=== PATIENT | male | born 1995 | race Caucasian/White ===

== ENCOUNTER 2019-05-24 09:47 | Emergency (ER) | payer SELFPAY ==
[2019-05-24 09:51] VITALS: BP 140/73; PULSE 102; TEMP 36.4; O2SAT 98
[2019-05-24 10:19] LABS: Bilirubin Negative (Negative); Blood Negative (Negative); Clarity Clear (Clear); Glucose Negative (Negative); Ketones Negative (Negative); Leukocyte Esterase Negative (Negative); Nitrite Negative (Negative); Urobilinogen 0.2 EU/dL (Up TO 0.2)
--- NOTE | 2019-05-24 10:38 | ED.GENADUL_ITS ---
Discharge Plan Disposition Patient Disposition: HOME Condition: Stable Discharge Details Chief Complaint: Urinary Clinical Impression: Encounter for assessment of STD exposure Primary Care Provider: None,None ED Provider: Dheeraj Avilez Home Meds and New Rx's Prescriptions: No Action amoxicillin 500 MG capsule 500 mg PO TID Qty: 20 RF: 0 Discharge Instructions Instructions: Chlamydia (ED) Additional Instructions: At this time you have been treated for presumptive STD such as gonorrhea and/or chlamydia. This test is a send out and the results will not be available today. As we discussed I recommend avoiding all sexual contact until your test has resulted in hip and treated appropriately. Please make sure that your recent sexual contacts are aware of their potential exposure. Please watch for new or worsening symptoms and return to the ER for any concerns. I do recommend establishing local primary care provider for your outpatient primary care needs Medical Decision Making 23-year-old male, concerned of chlamydia exposure. He denies history of any other STD. He reports only 1 sexual partner, his ex-girlfriend. Was not using condoms. He is currently asymptomatic but noticed a white discharge from his penis this morning. He has been in contact with this previous significant other. Will obtain urinalysis and dirty catch for GC and chlamydia. We discussed safe sex precautions as well as avoiding any sexual intercourse while being treated and his test is pending. Given his concern, we will presumptively treat with 1 g p.o. azithromycin and 250 IM Rocephin. Urinalysis unremarkable, GC and chlamydia pending. Patient has no additional questions or concerns and is comfortable discharge at this time Medical Records Medical records reviewed: Yes I reviewed the patient's medical records. Lab Data Lab results reviewed: Yes I reviewed the patient's lab results. Lab results narrative: Laboratory Tests Range/Units 05/24/19 10:01 Urine Color (Yellow) Yellow Urine Clarity (Clear) Clear Urine pH (5-8) 7.0 Ur Specific [place] (1.005-1.025) 1.020 Urine Protein (Negative) mg/dL Negative Urine Ketones (Negative) mg/dL Negative Urine Blood (Negative) Negative Urine Nitrite (Negative) Negative Urine Bilirubin (Negative) Negative Urine Urobilinogen (Up TO 0.2) EU/dL 0.2 Ur Leukocyte Esterase (Negative) Negative Urine Glucose (Negative) mg/dL Negative HPI General Mode of arrival: ambulatory . Date/Time Provider Initiated Documentation: 05/24/19 09:50 . Limitations to Documentation: no limitations . Information obtained by: patient . HPI Narrative: This is a 23-year-old gentle man with no past medical history who believes that he has contracted chlamydia from his ex-girlfriend. He noticed a small amount of white discharge from his penis this morning. He denies any penile discomfort, pain in his testicles, abdominal pain, nausea, vomiting, fever, diarrhea or constipation. He denies any skin rash. Related Data Home Medications Medication Instructions Recorded Confirmed amoxicillin 500 mg PO TID #20 capsule 05/03/15 Previous Rx's Medication Instructions Recorded amoxicillin 500 mg PO TID #20 capsule 05/03/15 Allergies Allergy/AdvReac Type Severity Reaction Status Date / Time No Known Allergies Allergy Unverified 05/03/15 00:26 General Stated Complaint: Urinary RICKEY: 4 Review of Systems Constitutional Constitutional: Denies fever(s) Gastrointestinal Gastrointestinal: Denies abdominal pain, Denies nausea and Denies vomiting Genitourinary Genitourinary: Denies hematuria, Denies genital lesions, Denies genital pain, Denies dysuria, Reports penile discharge, Denies scrotal swelling, Denies testicular pain and Denies urinary frequency Musculoskeletal Musculoskeletal: Denies back pain and Denies myalgias Integumentary/Breasts Skin/Breast: Denies rash [facility] Social History Smoking/Tobacco Use Status: Current-Occasional Tobacco Type: cigarettes Alcohol Intake: current Alcohol Intake frequency: a few times a month Drug use: Daily Substance use type: marijuana Do you feel safe at home: Yes Do you feel safe in your relationship?: Yes Exam Const General: cooperative, healthy appearing, comfortable and no acute distress Orientation: alert and awake HENMT Head: normal to inspection, normocephalic and atraumatic Mouth: moist mucous membranes Eyes Conjunctivae: conjunctivae normal Neck Neck: normal visual inspection, trachea midline and supple Resp Effort & Inspection: normal respiratory effort and able to speak in complete sentences Cardio Rate: regular rate Rhythm: regular rhythm Male General Exam: Yes normal external exam Penis: normal penis Meatus: meatus normal Scrotum: scrotum normal Testes: normal Back/Spine/Pelvis Back: No back tenderness Skin General skin exam: no rashes or lesions noted Neuro General: patient alert, patient awake, moves all extremities and no focal motor deficits Sensory Exam: no sensory deficits noted Psych Appearance: grossly normal Mental Status: mental status grossly normal Course Vital Signs Vital signs: Vital Signs Temperature 36.4 C L 05/24/19 09:51 Pulse 102 H 05/24/19 09:51 Blood Pressure 140/73 05/24/19 09:51 Pulse Oximetry 98 05/24/19 09:51 Temperature 36.4 C L 05/24/19 09:51 Temperature Source Temporal Artery Scan 05/24/19 09:51 Pulse 102 H 05/24/19 09:51 Respiratory Effort Non-Labored 05/24/19 09:53 Blood Pressure 140/73 05/24/19 09:51 Blood Pressure Position Sitting 05/24/19 09:51 Pulse Oximetry 98 05/24/19 09:51 Oxygen Delivery Method Room Air 05/24/19 09:51 Oxygen Flow Rate 0 05/24/19 09:51 Lab/Test Results Lab/Test Results: Laboratory Tests Range/Units 05/24/19 10:01 Urine Color (Yellow) Yellow Urine Clarity (Clear) Clear Urine pH (5-8) 7.0 Ur Specific [place] (1.005-1.025) 1.020 Urine Protein (Negative) mg/dL Negative Urine Ketones (Negative) mg/dL Negative Urine Blood (Negative) Negative Urine Nitrite (Negative) Negative Urine Bilirubin (Negative) Negative Urine Urobilinogen (Up TO 0.2) EU/dL 0.2 Ur Leukocyte Esterase (Negative) Negative Urine Glucose (Negative) mg/dL Negative
[2019-05-24] MEDS: Lidocaine 1% Multi-Dose 50 ML VIAL (10:50)
[2019-05-24] MEDS: Azithromycin 250 MG TAB 1000 MG PO (10:50)
[2019-05-24] MEDS: cefTRIAXone 250 MG VIAL IM (10:50)
[2019-05-25 13:40] LABS: Chlamydia Result Negative (Negative)
[2019-05-25 15:25] LABS: GC Result Positive (Negative)
--- NOTE | 2019-05-25 15:38 | W.ED.FU ---
Follow Up Plan: Call back. Patient's results positive for gonorrhea. Negative for chlamydia. Called patient. Made aware of test results. Patient was treated appropriately in the emergency room. Patient reports symptoms have entirely resolved. Recommended patient inform partner(s) whom would also require testing and treatment. Patient also advised to follow-up with [facility] or primary care doctor locally. Patient reports his understanding. Discussed testing for other possible infectious diseases including hepatitis and HIV. Patient reports his understanding. Will follow-up locally. Patient has no additional concerns at this time. Discussed use of protection.
== END 2019-05-24 10:56 | disposition home or self-care (01) ==
PROVIDERS: Emergency Provider Physician Assistant
DX: R36.9 Urethral discharge, unspecified (principal); Z20.2 Contact with and (suspected) exposure to infections with a predominantly sexual mode of transmission
CPT/HCPCS: 87491; 87591; 96372; 99284; 81003; 99283; J0696

== ENCOUNTER 2019-06-09 15:10 | Emergency (ER) | payer SELFPAY ==
[2019-06-09 15:12] VITALS: BP 111/71; PULSE 139; RESP 14; TEMP 37.8; O2SAT 97
--- NOTE | 2019-06-09 15:25 | W.ED.GENAD ---
Discharge Plan Disposition Patient Disposition: HOME Condition: Improving Discharge Details Chief Complaint: Sorethroat Clinical Impression: Pharyngitis Primary Care Provider: None,None ED Provider: Randy Guerra Home Meds and New Rx's Prescriptions: New amoxicillin-pot clavulanate 875-125 mg tablet 1 tab PO BID 10 Days Qty: 20 RF: 0 Discharge Instructions Instructions: Pharyngitis (ED) Additional Instructions: Home to rest today. Small, frequent sips of fluids to maintain hydration. You may find some benefit with warm salt water gargling. Tylenol as needed for aches, pains, fever. May use Tylenol to soothe the throat as well. Return if you develop a cough, persistent fevers, worsening sore throat, or any other acute concerns. Stand Alone Forms: NEGATIVE COVID-19 SCREENING Medical Decision Making 23-year-old male presents from home with day 2-1/2 of sore throat isolated and without significant cough and no known sick contacts. He is slightly tachycardic but states he is very anxious and does not like to be in the hospital. He is otherwise well-appearing is been tolerating liquids and solids without difficulty. Consistent with a pharyngitis. He may have a slightly developing sinusitis and therefore I will treat him with a course of Augmentin. Discussed with him potential screening for coronavirus which he asked to decline. He is stable for outpatient management. HPI General Mode of arrival: ambulatory. Date/Time Provider Initiated Documentation: 06/09/19 15:19. Limitations to Documentation: no limitations. Information obtained by: patient. History of Present Illness 23 year old M presents to the emergency department with the chief complaint of Sore throat for 2 days, described as moderate and similar to prior episodes, Quality is described as dull and constant, and is localized to the mouth. Patient reports no radiation. Patient started experiencing this hour(s) and it has been constant. No relieving factors improve symptom(s), No exacerbating factors reported . Patient did receive the following treatments prior to arrival, other (Tylenol) Related Data Home Medications Medication Instructions Recorded Confirmed amoxicillin-pot clavulanate 1 tab PO BID 10 Days #20 tab 06/09/19 Previous Rx's Medication Instructions Recorded amoxicillin-pot clavulanate 1 tab PO BID 10 Days #20 tab 06/09/19 Allergies Allergy/AdvReac Type Severity Reaction Status Date / Time No Known Allergies Allergy Unverified 06/09/19 15:22 General Stated Complaint: Sorethroat RICKEY: 4 Review of Systems Narrative: 6 systems reviewed and otherwise negative. No travel, no known sick contacts, denies significant cough. [facility] Social History Smoking/Tobacco Use Status: Current-Occasional Tobacco Type: cigarettes Alcohol Intake: current Alcohol Intake frequency: a few times a month Drug use: Daily Substance use type: marijuana Do you feel safe at home: Yes Do you feel safe in your relationship?: Yes Exam Narrative Exam Narrative: GEN: awake, alert, oriented 3. Pleasant, well groomed, interactive. HEAD: Normocephalic, atraumatic ENT: Mucous membranes moist, oropharynx with erythematous tonsillar pillars, scant exudate on the right, no asymmetry, the uvula is midline, tympanic membranes fluid-filled but nondistended,, External ear exam unremarkable EYES: PERRL, EOMI NECK: Full ROM, no IBAN, no menigismus CHEST/RESP: Nontender, clear to auscultation bilateral, no wheeze/rhonchi/rales CARDIOVASCULAR: Tachycardic but regular, no murmur, rub [place]. 2+ Rad pulse bilateral EXT: Full ROM, no edema, no rash Neuro: Grossly normal neurologic exam, conversant, interactive. Psych: Speech fluent, thoughts congruent, affect anxious Course Vital Signs Vital signs: Vital Signs Temperature 37.8 C H 06/09/19 15:12 Pulse 139 H 06/09/19 15:12 Respiratory Rate 14 06/09/19 15:12 Blood Pressure 111/71 06/09/19 15:12 Pulse Oximetry 97 06/09/19 15:12 Temperature 37.8 C H 06/09/19 15:12 Temperature Source Oral 06/09/19 15:12 Pulse 139 H 06/09/19 15:12 Respiratory Rate 14 06/09/19 15:12 Respiratory Effort 06/09/19 15:21 Blood Pressure 111/71 06/09/19 15:12 Blood Pressure Position Sitting 06/09/19 15:12 Pulse Oximetry 97 06/09/19 15:12 Oxygen Delivery Method Room Air 06/09/19 15:12 Oxygen Flow Rate 0 04/08/20 15:12 Pain Level 4 06/09/19 15:12 Comment took antihistamine 06/09/19 15:12
== END 2019-06-09 15:40 | disposition home or self-care (01) ==
PROVIDERS: Emergency Provider Emergency Medicine
DX: J02.9 Acute pharyngitis, unspecified (principal); F41.9 Anxiety disorder, unspecified; F17.210 Nicotine dependence, cigarettes, uncomplicated
CPT/HCPCS: 99283

== ENCOUNTER 2020-03-15 16:11 | Outpatient (REF) | payer SELFPAY ==
[2020-03-16 15:11] LABS: COVID-19 RT-PCR UVMMC Result Negative (Negative)
== END 2020-03-15 16:31 ==
LOC: NCHCN 16:11
PROVIDERS: Visit Provider Nurse Practitioner Family
DX: Z20.828 Contact with and (suspected) exposure to other viral communicable diseases (principal)
CPT/HCPCS: U0003

== ENCOUNTER 2020-03-20 18:00 | Outpatient (REF) | payer SELFPAY ==
[2020-03-22 17:18] LABS: COVID-19 RT-PCR UVMMC Result Negative (Negative)
== END 2020-03-20 18:20 ==
LOC: NCHCN 18:00
PROVIDERS: Visit Provider Nurse Practitioner Family
DX: Z20.822 Contact with and (suspected) exposure to COVID-19 (principal)
CPT/HCPCS: U0003